=== PATIENT | female | born 1955 | race Caucasian/White ===

== ENCOUNTER 2016-08-14 13:33 | Emergency (ER) | payer OTHER ==
[~2016-08-14] VITALS: Ht 175.3 cm; Wt 113.4 kg
[~2016-08-14 13:33] MED LIST: AMLO5TAB2 PO; LEVO100T PO
--- NOTE | 2016-08-14 13:40 | NUR ---
PATIENT IS ALSO COMPLAINING OF MIDSTERNAL CHEST PAIN 8/10M,SHARP, NON RADIATING. VSS,. GOWNED AND PLACED ON TELE MONITOR.
--- NOTE | 2016-08-14 13:40 | NUR ---
SELF PRESENT TO ED DUE TO COUGH, CONGESTION, AND SOB X 1 WEEK. AFEBRILE AT THIS TIME. VSS.
--- NOTE | 2016-08-14 13:53 | NUR ---
AUGUST LORENZANA AT BEDSIDE
[2016-08-14 14:03] LABS: BASOPHILS % (AUTO) 0.5 % (0.0-2.0); EOSINOPHILS # (AUTO) 0.3 /CMM (0.0-0.7); EOSINOPHILS % (AUTO) 3.6 % (0.0-6.0); HEMATOCRIT 44 % (33-45); HEMOGLOBIN 14.4 g/dL (11.5-14.8); LYMPHOCYTES # (AUTO) 2.5 /CMM (0.8-4.8); LYMPHOCYTES % (AUTO) 32.8 % (20.0-44.0); MEAN CORPUSCULAR HEMOGLOBIN 27 PG (26.0-33.0); MEAN CORPUSCULAR HGB CONC 32 g/dl (31.0-36.0); MEAN CORPUSCULAR VOLUME 84 fL (82-100); MONOCYTES # (AUTO) 0.5 /CMM (0.1-1.30); MONOCYTES % (AUTO) 6.5 % (2.0-12.0); NEUTROPHILS # (AUTO) 4.3 /CMM (1.8-8.9); NEUTROPHILS % (AUTO) 56.6 % (43.0-81.0); PLATELET COUNT (AUTO) 272 /CMM (150-450); RDW COEFFICIENT OF VARIATION 13.2 (11.5-15.0); RED BLOOD CELL COUNT(AUTO) 5.27 MIL/uL (4.0-5.2); WHITE BLOOD COUNT (AUTO) 7.6 K/uL (4.3-11.0)
[2016-08-14 14:17] LABS: INR 0.94 (0.87-1.13); PROTHROMBIN TIME 9.8 SECS (9.5-12.7)
[2016-08-14 14:21] LABS: TROPONIN I < 0.017 ng/mL (0.00-0.056)
[2016-08-14] MEDS ORDERED: ALBUTEROL FS 2.5 MG/3 ML VIAL.NEB ONE ×2 (14:24→18:11)
--- NOTE | 2016-08-14 14:24 | NUR ---
NOTIFIED RT OF BREATHING TX
[2016-08-14] MEDS ORDERED: IPRATROPIUM NEB FS 0.5 MG/2.5 ML AMPUL.NEB ONE (14:25)
--- NOTE | 2016-08-14 14:29 | NUR ---
RT AT BEDSIDE FOR BREATHING TREATMENT
[2016-08-14] MEDS ORDERED: ALBUTEROL FS 2.5 MG/3 ML VIAL.NEB NEB ONE ×2 (14:30→18:30)
[2016-08-14] MEDS ORDERED: IPRATROPIUM NEB FS 0.5 MG/2.5 ML AMPUL.NEB NEB ONE (14:30)
[2016-08-14 15:32] LABS: CALCIUM, SERUM 8.9 mg/dL (8.5-10.1); CARBON DIOXIDE 27 mmol/L (21-32); CHLORIDE 107 mmol/L (98-107); CREATININE 1.4 mg/dL (0.6-1.3); GFR 39 mL/min (>60); GLUCOSE 118 mg/dL (74-106); POTASSIUM 3.8 mmol/L (3.5-5.1); SODIUM SERUM 144 mmol/L (136-145); UREA NITROGEN, BLOOD 13 mg/dL (7-18)
--- NOTE | 2016-08-14 16:29 | NUR ---
Ptient was taken to radilogy department for Vq scan
--- NOTE | 2016-08-14 17:06 | NUR ---
PATIENT IS BACK TO ROOM. VSS
[2016-08-14] MEDS ORDERED: predniSONE 20 MG TABLET ONE (17:23)
[2016-08-14] MEDS ORDERED: predniSONE 20 MG TABLET PO ONE (17:30)
[2016-08-14 17:44] VITALS: BP 138/78
--- NOTE | 2016-08-14 18:10 | NUR ---
CALLED KATY TO READ NM
== END 2016-08-14 18:45 | disposition home or self-care (01) ==
LOC: ER 13:34
DX: J20.9 Acute bronchitis, unspecified (principal); R06.2 Wheezing; I10 Essential (primary) hypertension; J45.909 Unspecified asthma, uncomplicated; C50.919 Malignant neoplasm of unspecified site of unspecified female breast; C55 Malignant neoplasm of uterus, part unspecified; I26.99 Other pulmonary embolism without acute cor pulmonale; E03.9 Hypothyroidism, unspecified; Z90.710 Acquired absence of both cervix and uterus; Z90.13 Acquired absence of bilateral breasts and nipples; Z91.040 Latex allergy status; Z88.8 Allergy status to other drugs, medicaments and biological substances; Z91.048 Other nonmedicinal substance allergy status
CPT/HCPCS: 36415; 71010-TC; 78582; 80048-TC; 84484-TC; 85025-TC; 85378-TC; 85730-TC; A4606; A9540; A9567; Z7610

== ENCOUNTER → 2017-01-30 | Emergency (ER) | payer OTHER ==
[~2017-01-30] VITALS: Ht 175.3 cm; Wt 113.4 kg
[2017-01-30 19:47] VITALS: BP 150/93
== END | disposition home or self-care (01) ==
LOC: ER 19:47
DX: M25.532 Pain in left wrist (principal); J45.909 Unspecified asthma, uncomplicated; I10 Essential (primary) hypertension; Z91.041 Radiographic dye allergy status; Z91.040 Latex allergy status; Z91.048 Other nonmedicinal substance allergy status
CPT/HCPCS: 99282; A4606; Z7610

== ENCOUNTER 2017-05-23 02:21 | Emergency (ER) | payer OTHER ==
[~2017-05-23] VITALS: Ht 175.3 cm; Wt 112.5 kg
[2017-05-23 02:39] VITALS: BP 157/120
--- NOTE | 2017-05-23 02:40 | NUR ---
PT BIBSELF C/O POSSIBLE REACTION TO BUTRANS TRANSDERMAL. PT AOX3 RR EVEN AND UNLABORED. NO SOB NOTED. NAD NOTED. NO NVD AT THIS TIME. PT GOWNED AND PLACED ON MONITOR WAITING FOR MD VASQUES.
--- NOTE | 2017-05-23 02:50 | NUR ---
AT BEDSIDE SPEKAING TO PT
== END 2017-05-23 02:59 | disposition home or self-care (01) ==
LOC: ER 02:25
DX: G89.29 Other chronic pain (principal); R51 Headache; I10 Essential (primary) hypertension; J45.909 Unspecified asthma, uncomplicated; Z85.42 Personal history of malignant neoplasm of other parts of uterus; Z85.3 Personal history of malignant neoplasm of breast; E03.9 Hypothyroidism, unspecified; Z86.711 Personal history of pulmonary embolism; Z90.710 Acquired absence of both cervix and uterus; Z90.13 Acquired absence of bilateral breasts and nipples; Z88.8 Allergy status to other drugs, medicaments and biological substances; Z91.040 Latex allergy status
CPT/HCPCS: A4606; Z7502; Z7610